=== PATIENT | female | born 1985 | race Asian ===

== ENCOUNTER 2020-04-20 06:34 | Day surgery (SDC) | payer OTHER ==
[2020-04-20 06:59] LABS: Specific Gravity 1.015 (1.005-1.030)
[2020-04-20] MEDS ORDERED: Ringers Lactate 1,000 ML IV ONE (07:05)
[2020-04-20] MEDS ORDERED: LIDOCAINE 2% MPF 5 ML VIAL ONE (07:36)
[2020-04-20] MEDS ORDERED: propofoL 200 MG/20 ML VIAL IV ONE (07:36)
[2020-04-20] MEDS ORDERED: MIDAZOLAM HCL 2 MG/2 ML INJ ONE (07:36)
[2020-04-20] MEDS ORDERED: FENTANYL CITR 100 MCG/2 ML ONE (07:36)
[2020-04-20] MEDS ORDERED: ONDANSETRON 4 MG/2 ML VIAL ONE (07:37)
[2020-04-20] MEDS ORDERED: NA CHLORIDE 0.9% 1,000 ML ONE (07:38)
[2020-04-20] MEDS ORDERED: LIDOCAINE 1% W/EPI 1:100,000 MDV 20 ML VIAL ONE (07:38)
[2020-04-20] MEDS ORDERED: dexAMETHasone 10 MG/ML VIAL ONE (08:11)
[2020-04-20] MEDS ORDERED: KETOROLAC 30 MG/ML INJ ONE (08:22)
[2020-04-20 08:51] VITALS: BP 120/78; TEMP 97.5; O2SAT 100
[2020-04-20] MEDS ORDERED: IBUPROFEN 200 MG TAB PO ONE (09:10)
--- NOTE | 2020-04-20 14:53 | OP ---
Date of Procedure: 04/20/2020 Surgeon: Nikki Viera MD Preoperative Diagnosis: Irregular menstrual bleeding, possible endometrial polyp. Postoperative Diagnoses: Irregular bleeding, (abnormal uterine bleeding due to ovulatory dysfunction ) and polypoid endometrium. No intracavitary mass. Procedures Performed: Hysteroscopy, Dilatation and Curettage. Anesthesia: MAC plus paracervical block. Specimens: Endometrial curettings. Complications: No complications. Drains: No drains. Condition: Stable. Findings: Uterus is anteflexed. The entire uterine cavity was well visualized. Both tubal ostia we re well visualized. The anterior wall of fundal endometrium, proximal posterior wall endometrium com pletely unremarkable. Distal posterior wall and lateral wall endometrium was polypoid. All pictures were taken and a copy given to her . Indications: The patient is a 34-year-old with irregular bleeding. She was being evaluated for infe rtility. On transvaginal ultrasound, there was thickened endometrium, possible question of a polyp. On second opinion consultation with me, we discussed about the findings and the recommendations of ronnell kaufman with hysteroscopic evaluation of the endometrial cavity as well as the endometrium for samp ling if abnormality was found were discussed with the patient and polypectomy was discussed and she w as consented and brought to the OR. Description Of Procedure: She was taken back to the OR, placed in supine fashion on the operating ta ble. MAC was given, placed in a dorsal lithotomy position. The vulva, vagina prepped and draped in a sterile fashion. Speculum placed to expose the cervix. Anterior lip injected with 1% lidocaine mi xed with 1:100,000 epinephrine. A paracervical block was given as well. Using a [employer] diagnostic hysteroscope, 30 degree lens, direct hysteroscopy with dilation of the cervix was conducted and uter ine cavity was entered. The findings are as dictated above, polypoid posterior wall and lateral wall s in the distal part of the cavity. No masses. Scope removed. Both tubal ostia were unremarkable. Normal-appearing. No abnormalities in the contour of the uterus. Before removing the scope, the tip of the scope was used to scrape the polypoid endometrium from its base. Most of the irregularity was scraped off and easily was . The scope was then removed . #1 curette was used to gently retrieve the tissue in the cavity. Then, curettage was performed po steriorly, laterally, and down gently. All these were retrieved, turned out for permanent pathology. The instruments removed. Instruments, needle, and sponge counts were correct at the end of the juan f e. The patient tolerated the procedure well. She was recovered from anesthesia in the OR and taken to PACU in stable condition. EBL was minimal. She has a 1 week follow up with me and she can follow up with her infertility product consultant. JAVIER/MARGY Voice ID: [id number] Report ID: [id number]
== END 2020-04-20 09:20 | disposition home or self-care (01) ==
LOC: OR 06:34
PROVIDERS: ATTEND Obstetrics & Gynecology
PROC: 0UJD8ZZ Inspection of Uterus and Cervix, Via Natural or Artificial Opening Endoscopic (ICD-10-PCS; 2020-04-20)
PROC: 0UDB7ZX Extraction of Endometrium, Via Natural or Artificial Opening, Diagnostic (ICD-10-PCS; principal; 2020-04-20 07:30)
DX: N92.6 Irregular menstruation, unspecified (principal); N94.6 Dysmenorrhea, unspecified; N84.0 Polyp of corpus uteri; N76.1 Subacute and chronic vaginitis; Z11.59 Encounter for screening for other viral diseases; Z80.8 Family history of malignant neoplasm of other organs or systems; Z82.49 Family history of ischemic heart disease and other diseases of the circulatory system
CPT/HCPCS: 81025; 88305; 58558; U0002; J2704; J2250; J3010; J1100; J7120; J7030; J2405

== ENCOUNTER 2021-11-08 20:04 | Observation (INO) | payer BC, OTHER ==
--- OUTSIDE RECORDS SUMMARY | 2021-11-08 20:08 | XMS REPORT | Continuity of Care Document ---
:[address] [facility] t Address [address] [place] [address] Care Team Providers Name Role Phone DONAVON NATION Attending Clinician Unavailable Sony Downey Attending Clinician Unavailable DONAVON NATION Admitting Clinician Unavailable Payers Payer Name Policy Type Policy Number Effective Date Expiration Date S our BCBS OS [id number] 2021 00:00:00 POS/PPO/EPO AETNA [facility] [id number] 2020 00:00:00 ACCESS CIGNA [id number] 2019 00:00:00 HMO/POS/OPEN ACCESS Problems This patient has no known problems. Allergies, Adverse Reactions, Alerts Allergy Allergy Status Severity Reaction(s) Onset Inactive Treating Comm ents Source Name Type Date Date Clinician NO KNOWN Allergy Active [facility] ALLERGIE S Medications This patient has no known medications. Vital Signs Vital Name Observation Time Observation Value Comments Source HEIGHT 2021-10-29 14:55:00 152.4 cm WEIGHT 2021-10-29 14:55:00 70.308 kg HEIGHT 2021-10-01 14:36:00 152.4 cm WEIGHT 2021-10-01 14:36:00 68.493 kg HEIGHT 2021-08-06 15:02:00 152.4 cm WEIGHT 2021-08-06 15:02:00 66.225 kg HEIGHT 2021-07-09 14:29:00 152.4 cm WEIGHT 2021-07-09 14:29:00 65.409 kg WEIGHT 2020-05-01 00:00:00 62.143 kg Procedures This patient has no known procedures. Encounters Start End Encounter Admission Attending Care Care Encounter Source Date/Time Date/Time Type Type Clinicians Facility Department ID 2021-12-18 2021-12-18 Outpatient [facility] [id number] 00:00:00 00:00:00 [facility] 2021-11-05 2021-11-05 [facility] [id number] [facility] 00:00:00 00:00:00 2021-10-31 2021-11-02 Inpatient WILL NATION [facility] Obstetrics [id number] [facility] 09:53:00 12:41:00 [facility] 2021-10-29 2021-10-29 Outpatient [facility] [id number] 14:40:00 15:14:01 [facility] 2021-10-22 2021-10-22 Outpatient FLORECITA [facility] [id number] 00[facility] 00:00:00 [facility] 2021-10-17 2021-10-17 Outpatient [facility] [id number] 14:12:00 15:31:14 [facility] 2021-10-17 2021-10-17 Outpatient [facility] [id number] 14:11:41 15:23:20 [facility] 2021-10-15 2021-10-15 Outpatient [facility] [id number] 00:00:00 00:00:00 [facility] 2021-10-15 2021-10-15 Outpatient FLORECITA [facility] [id number] [facility] 00[facility] 00:00:00 [facility] 2021-10-01 2021-10-01 Outpatient KRYSTA FANG Obstetrics [id number] [facility] 15:52:00 17:06:00 [facility] 2021-10-012021-10-01 Outpatient [facility] [id number] 14:29:27 15:37:26 [facility] 2021-09-17 2021-09-17 [facility] [id number] [facility] 15:26:00 16:52:00 [facility] 2021-09-17 2021-09-17 Outpatient [facility] [id number] 14:17:36 15:02:50 [facility] 2021-09-17 2021-09-17 Outpatient [facility] [id number] 14:18:01 15:01:58 [facility] 2021-09-03 2021-09-03 Outpatient [facility] [id number] 14:48:40 15:58:49 [facility] 2021-08-06 2021-08-06 Outpatient [facility] [id number] 14:33:25 16:14:47 [facility] 2021-07-09 2021-07-09 Outpatient JEMELKA-WEA [facility] [id number] 00:00[facility]00 00:00:00 [facility] 2021-06-11 2021-06-11 Outpatient JEMELKA-WEA [facility] [id number] 00:00[facility]00 00:00:00 [facility] 2021-05-14 2021-05-14 Outpatient JEMELKA-WEA [facility] [id number] 00:00:00 00:00:00 [facility] 2021-05-10 2021-05-10 Outpatient [facility] [id number] 00[facility]00:00 00:00:00 [facility] 2021-04-16 2021-04-16 Outpatient [facility] [id number] 00:00:00 00:00:00 [facility] 2021-04-16 2021-04-16 Outpatient JEMELKA, [facility] [id number] 00:00:00 00:00:00 [facility] 2020-08-29 2020-08-29 Outpatient DONAVON [facility] [id number] 00:00:00 00:00:00 [facility] 2020-07-04 2020-07-04 Outpatient DONAVON [facility] [id number] 00:00:00 00:00:00 [facility] 2020-05-22 2020-05-22 Outpatient EL [facility] [id number] [facility] 00:00:00 00:00:00 2020-05-01 2020-05-01 Outpatient DONAVON [facility] [id number] 00:00:00 00:00:00 [facility] 2019-11-30 2019-11-30 Outpatient Shayan, SWOBGYN SWOB[facility]N [id number] [facility] 13:14:00 13:14:00 Shelbie leiva OBGYN 2019-11-30 2019-11-30 Outpatient Shayan, SWOBGYN SWOBGYN [id number] [facility] 10:45:00 10:45:00 Shelbie leiva OBGYN 2019-10-21 2019-10-21 Outpatient Shayan, KIRTIGYN SWOBGYN [id number] [facility] 14:18:00 14:18:00 Shelbie SegalN Results Test Description Test Time Test Comments Results Result Comments Source CBC W/PLT COUNT & AUTO DIFFERENTIAL 2021-11-02 04:59:39 Test Item Value Reference Range Interpretation Comme nts WHITE BLOOD CELL COUNT (BEAKER) (test code = 775) 17.0 K/ L 4.0- 10.0 H RED BLOOD CELL COUNT (BEAKER) (test code = 761) 4.38 M/ L 4.00-5 .00 HEMOGLOBIN (BEAKER) (test code = 410) 9.4 GM/DL 12.0-15.5 L HEMATOCRIT (BEAKER) (test code = 411) 28.8 % 36.0-46.0 L MEAN CORPUSCULAR VOLUME (BEAKER) (test code = 753) 65.8 fL 82. 0-99.0 L MEAN CORPUSCULAR HEMOGLOBIN (BEAKER) (test code = 751) 21.5 pg 27.0-33.0 L MEAN CORPUSCULAR HEMOGLOBIN CONC (BEAKER) (test code = 752) 32.6 GM/DL 32.0-36.0 RED CELL DISTRIBUTION WIDTH (BEAKER) (test code = 412) 15.4 % 12.0-15.0 H PLATELET COUNT (BEAKER) (test code = 756) 274 K/CU MM 150-430 MEAN PLATELET VOLUME (BEAKER) (test code = 754) 12.1 fL 6.0-11 .5 H NUCLEATED RED BLOOD CELLS (BEAKER) (test code = 413) 0 /100 WBC 0 -0 NEUTROPHILS RELATIVE PERCENT (BEAKER) (test code = 429) 74 % LYMPHOCYTES RELATIVE PERCENT (BEAKER) (test code = 430) 17 % MONOCYTES RELATIVE PERCENT (BEAKER) (test code = 431) 7 % EOSINOPHILS RELATIVE PERCENT (BEAKER) (test code = 432) 1 % BASOPHILS RELATIVE PERCENT (BEAKER) (test code = 437) 1 % NEUTROPHILS ABSOLUTE COUNT (BEAKER) (test code = 670) 12.52 K/ L 1.80-8.00 H LYMPHOCYTES ABSOLUTE COUNT (BEAKER) (test code = 414) 2.85 K/ L 1.48-4.50 MONOCYTES ABSOLUTE COUNT (BEAKER) (test code = 415) 1.14 K/ L 0. 00-1.30 EOSINOPHILS ABSOLUTE COUNT (BEAKER) (test code = 416) 0.18 K/ L 0.00-0.50 BASOPHILS ABSOLUTE COUNT (BEAKER) (test code = 417) 0.08 K/ L 0. 00-0.20 IMMATURE GRANULOCYTES-RELATIVE PERCENT (BEAKER) (test code 1 % 0-0 H = 2801) [id number] 08:49:23 Test Item Value Reference Range Interpretation Comments RPR SCREEN (BEAKER) (test code = Nonreactive Nonreactive 420) BLOOD GAS, CORD [id number] 18:12:13 Test Item Value Reference Range Interpretation Comments PH CORD VENOUS (BEAKER) (test 7.30 7.32-7.42 L code = 2866) PCO2 CORD VENOUS (BEAKER) (test 48 mm Hg 41-51 code = 2867) PO2 CORD VENOUS (BEAKER) (test 18 mm Hg 25-40 L code = 2868) HCO3 CORD VENOUS (BEAKER) (test 23 mmol/L 21-29 code = 2869) BASE EXCESS CORD VENOUS (BEAKER) -3.9 mmol/L -2.0-3.0 L (test code = 2870) PATIENT TEMPERATURE (BEAKER) 37.0 (test code = 1818) BLOOD GAS, CORD [id number] 18:07:46 Test Item Value Reference Range Interpretation Comments PH CORD ARTERIAL (BEAKER) (test 7.25 7.15-7.38 code = 2861) PCO2 CORD ARTERIAL (BEAKER) (test 56 mm Hg 32-68 code = 2862) PO2 CORD ARTERIAL (BEAKER) (test 16 mm Hg 16-20 code = 2863) HCO3 CORD ARTERIAL (BEAKER) (test 24 mmol/L 15-27 code = 2864) BASE EXCESS CORD ARTERIAL -4.4 mmol/L -8.1-0.9 (BEAKER) (test code = 2865) PATIENT TEMPERATURE (BEAKER) 37.0 (test code = 1818) HEPATITIS B SURFACE [id number] 12:56:52 Test Item Value Reference Range Interpretation Comments HEPATITIS B SURFACE ANTIGEN (2) Nonreactive Nonreactive (BEAKER) (test code = 2585) Tool Pusher ID - [id number] METABOLIC [id number] 12:39:28 Test Item Value Reference Range Interpretation Comments TOTAL PROTEIN 6.6 gm/dL 6.0-8.5 (BEAKER) (test code = 770) ALBUMIN (BEAKER) 3.5 g/dL 3.5-5.0 (test code = 1145) ALKALINE PHOSPHATASE 105 U/L 30-115 (BEAKER) (test code = 346) BILIRUBIN TOTAL 0.9 mg/dL 0.1-1.2 (BEAKER) (test code = 377) SODIUM (BEAKER) (test 136 meq/L 135-148 code = 381) POTASSIUM (BEAKER) 3.9 meq/L 3.6-5.5 (test code = 379) CHLORIDE (BEAKER) 103 meq/L 98-106 (test code = 382) CO2 (BEAKER) (test 21 meq/L 20-29 code = 355) BLOOD UREA NITROGEN 6 mg/dL 10-26 L (BEAKER) (test code = 354) CREATININE (BEAKER) 0.61 mg/dL 0.50-1.20 (test code = 358) GLUCOSE RANDOM 85 mg/dL 70-110 (BEAKER) (test code = 652) CALCIUM (BEAKER) 9.1 mg/dL 8.5-10.5 (test code = 697) AST (SGOT) (BEAKER) 15 U/L 5-40 (test code = 353) ALT (SGPT) (BEAKER) 13 U/L 5-50 (test code = 347) EGFR (BEAKER) (test 112 ESTIMATE D GFR IS code = 1092) mL/min/1.73 sq NOT ACCURA TE m CREATININE CLEARANCE IN PREDICTING GLOMERULAR FILTRATION RATE . ESTIMATED GFR I S NOT APPLICABLE FOR DIALYSIS PATIEN TS. Tool Pusher ID - [id number] ID - [id number] ID - [id number] ID - [id number] ID - [id number] ID - [id number] ID - [id number] ID - [id number] ID - [id number] ID - [id number] ID - [id number] ID - [id number] ID - [id number] ID - [id number] ID - [id number] ID - [id number] 12:38:26 Test Item Value Reference Range Interpretation Comments URIC ACID (BEAKER) (test code = 6.4 mg/dL 2.5-8.0 773) Tool Pusher ID - [id number] ID - [id number] ID - [id number] ID - [id number] W/PLT COUNT & AUTO [id number] 12:26:42 Test Item Value Reference Range Interpretation Comments WHITE BLOOD CELL COUNT (BEAKER) 14.6 K/ L 4.0-10.0 H (test code = 775) RED BLOOD CELL COUNT (BEAKER) 5.37 M/ L 4.00-5.00 H (test code = 761) HEMOGLOBIN (BEAKER) (test code = 11.4 GM/DL 12.0-15.5 L 410) HEMATOCRIT (BEAKER) (test code = 35.3 % 36.0-46.0 L 411) MEAN CORPUSCULAR VOLUME (BEAKER) 65.7 fL 82.0-99.0 L (test code = 753) MEAN CORPUSCULAR HEMOGLOBIN 21.2 pg 27.0-33.0 L (BEAKER) (test code = 751) MEAN CORPUSCULAR HEMOGLOBIN CONC 32.3 GM/DL 32.0-36.0 (BEAKER) (test code = 752) RED CELL DISTRIBUTION WIDTH 15.9 % 12.0-15.0 H (BEAKER) (test code = 412) PLATELET COUNT (BEAKER) (test 310 K/CU MM 150-430 code = 756) MEAN PLATELET VOLUME (BEAKER) 10.5 fL 6.0-11.5 (test code = 754) NUCLEATED RED BLOOD CELLS 0 /100 WBC 0-0 (BEAKER) (test code = 413) NEUTROPHILS RELATIVE PERCENT 80 % (BEAKER) (test code = 429) LYMPHOCYTES RELATIVE PERCENT 11 % (BEAKER) (test code = 430) MONOCYTES RELATIVE PERCENT 6 % (BEAKER) (test code = 431) EOSINOPHILS RELATIVE PERCENT 1 % (BEAKER) (test code = 432) BASOPHILS RELATIVE PERCENT 0 % (BEAKER) (test code = 437) NEUTROPHILS ABSOLUTE COUNT 11.59 K/ L 1.80-8.00 H (BEAKER) (test code = 670) LYMPHOCYTES ABSOLUTE COUNT 1.65 K/ L 1.48-4.50 (BEAKER) (test code = 414) MONOCYTES ABSOLUTE COUNT (BEAKER) 0.92 K/ L 0.00-1.30 (test code = 415) EOSINOPHILS ABSOLUTE COUNT 0.11 K/ L 0.00-0.50 (BEAKER) (test code = 416) BASOPHILS ABSOLUTE COUNT (BEAKER) 0.04 K/ L 0.00-0.20 (test code = 417) IMMATURE GRANULOCYTES-RELATIVE 2 % 0-0 H PERCENT (BEAKER) (test code = 2801) ROM (RUPTURE OF MEMBRANE)2021-10-31 10:33:59 Test Item Value Reference Range Interpretation Comments RUPTURE OF MEMBRANES (test Positive code = 1524) RFM - TYPE OF TEST (test code = Rom Plus 5987) CREATININE, RANDOM [id number] 16:48:51 Test Item Value Reference Range Interpretation Comments CREATININE URINE (BEAKER) (test 32.2 mg/dL code = 375) Reference Range: No NormalsOperator ID - [id number], RANDOM [id number] 16:45:25 Test Item Value Reference Range Interpretation Comments PROTEIN, URINE (BEAKER) (test code = 2 mg/dL 0-14 1569) Tool Pusher ID - [id number] METABOLIC [id number] 16:37:27 Test Item Value Reference Range Interpretation Comments TOTAL PROTEIN 6.5 gm/dL 6.0-8.5 (BEAKER) (test code = 770) ALBUMIN (BEAKER) 3.5 g/dL 3.5-5.0 (test code = 1145) ALKALINE PHOSPHATASE 84 U/L 30-115 (BEAKER) (test code = 346) BILIRUBIN TOTAL 0.6 mg/dL 0.1-1.2 (BEAKER) (test code = 377) SODIUM (BEAKER) (test 135 meq/L 135-148 code = 381) POTASSIUM (BEAKER) 4.0 meq/L 3.6-5.5 (test code = 379) CHLORIDE (BEAKER) 104 meq/L 98-106 (test code = 382) CO2 (BEAKER) (test 22 meq/L 20-29 code = 355) BLOOD UREA NITROGEN 7 mg/dL 10-26 L (BEAKER) (test code = 354) CREATININE (BEAKER) 0.61 mg/dL 0.50-1.20 (test code = 358) GLUCOSE RANDOM 92 mg/dL 70-110 (BEAKER) (test code = 652) CALCIUM (BEAKER) 9.3 mg/dL 8.5-10.5 (test code = 697) AST (SGOT) (BEAKER) 16 U/L 5-40 (test code = 353) ALT (SGPT) (BEAKER) 15 U/L 5-50 (test code = 347) EGFR (BEAKER) (test 112 ESTIMATE D GFR IS code = 1092) mL/min/1.73 sq NOT ACCURA TE m CREATININE CLEARANCE IN PREDICTING GLOMERULAR FILTRATION RATE . ESTIMATED GFR I S NOT APPLICABLE FOR DIALYSIS PATIEN TS. Tool Pusher ID - [id number] ID - [id number] ID - [id number] ID - [id number] ID - [id number] ID - [id number] ID - [id number] ID - [id number] ID - [id number] ID - [id number] ID - [id number] ID - [id number] ID - [id number] ID - [id number] ID - [id number] ID - [id number] ID - [id number] ID - [id number] ID - [id number] URINALYSIS WITH MICROSCOPIC IF [id number] 16:21:08 Test Item Value Reference Range Interpretation Comments COLOR (BEAKER) (test code = 470) Yellow CLARITY (BEAKER) (test code = 469) Clear SPECIFIC GRAVITY UA (BEAKER) (test 1.010 1.001-1.035 code = 468) PH UA (BEAKER) (test code = 467) 6.5 5.0-8.0 PROTEIN UA (BEAKER) (test code = Negative Negative 464) GLUCOSE UA (BEAKER) (test code = Negative Negative 365) KETONES UA (BEAKER) (test code = Negative Negative 371) BILIRUBIN UA (BEAKER) (test code = Negative Negative 462) BLOOD UA (BEAKER) (test code = 461) Negative Negative NITRITE UA (BEAKER) (test code = Negative Negative 465) LEUKOCYTE ESTERASE UA (BEAKER) Negative Negative (test code = 466) UROBILINOGEN UA (BEAKER) (test code 0.2 mg/dL 0.2-1.0 = 463) SOURCE(BEAKER) (test code = 2795) CBC W/PLT COUNT & AUTO [id number] 16:20:50 Test Item Value Reference Range Interpretation Comments WHITE BLOOD CELL COUNT (BEAKER) 14.6 K/ L 4.0-10.0 H (test code = 775) RED BLOOD CELL COUNT (BEAKER) 4.91 M/ L 4.00-5.00 (test code = 761) HEMOGLOBIN (BEAKER) (test code = 10.6 GM/DL 12.0-15.5 L 410) HEMATOCRIT (BEAKER) (test code = 32.3 % 36.0-46.0 L 411) MEAN CORPUSCULAR VOLUME (BEAKER) 65.8 fL 82.0-99.0 L (test code = 753) MEAN CORPUSCULAR HEMOGLOBIN 21.6 pg 27.0-33.0 L (BEAKER) (test code = 751) MEAN CORPUSCULAR HEMOGLOBIN CONC 32.8 GM/DL 32.0-36.0 (BEAKER) (test code = 752) RED CELL DISTRIBUTION WIDTH 15.8 % 12.0-15.0 H (BEAKER) (test code = 412) PLATELET COUNT (BEAKER) (test 265 K/CU MM 150-430 code = 756) MEAN PLATELET VOLUME (BEAKER) 12.4 fL 6.0-11.5 H (test code = 754) NUCLEATED RED BLOOD CELLS 0 /100 WBC 0-0 (BEAKER) (test code = 413) NEUTROPHILS RELATIVE PERCENT 77 % (BEAKER) (test code = 429) LYMPHOCYTES RELATIVE PERCENT 12 % (BEAKER) (test code = 430) MONOCYTES RELATIVE PERCENT 7 % (BEAKER) (test code = 431) EOSINOPHILS RELATIVE PERCENT 1 % (BEAKER) (test code = 432) BASOPHILS RELATIVE PERCENT 0 % (BEAKER) (test code = 437) NEUTROPHILS ABSOLUTE COUNT 11.22 K/ L 1.80-8.00 H (BEAKER) (test code = 670) LYMPHOCYTES ABSOLUTE COUNT 1.78 K/ L 1.48-4.50 (BEAKER) (test code = 414) MONOCYTES ABSOLUTE COUNT (BEAKER) 1.05 K/ L 0.00-1.30 (test code = 415) EOSINOPHILS ABSOLUTE COUNT 0.10 K/ L 0.00-0.50 (BEAKER) (test code = 416) BASOPHILS ABSOLUTE COUNT (BEAKER) 0.05 K/ L 0.00-0.20 (test code = 417) IMMATURE GRANULOCYTES-RELATIVE 3 % 0-0 H PERCENT (BEAKER) (test code = 2801) CBC W/PLT COUNT & AUTO [id number] 16:43:50 Test Item Value Reference Range Interpretation Comments WHITE BLOOD CELL COUNT (BEAKER) 13.1 K/ L 4.0-10.0 H (test code = 775) RED BLOOD CELL COUNT (BEAKER) 4.83 M/ L 4.00-5.00 (test code = 761) HEMOGLOBIN (BEAKER) (test code = 10.1 GM/DL 12.0-15.5 L 410) HEMATOCRIT (BEAKER) (test code = 31.3 % 36.0-46.0 L 411) MEAN CORPUSCULAR VOLUME (BEAKER) 64.8 fL 82.0-99.0 L (test code = 753) MEAN CORPUSCULAR HEMOGLOBIN 20.9 pg 27.0-33.0 L (BEAKER) (test code = 751) MEAN CORPUSCULAR HEMOGLOBIN CONC 32.3 GM/DL 32.0-36.0 (BEAKER) (test code = 752) RED CELL DISTRIBUTION WIDTH 15.4 % 12.0-15.0 H (BEAKER) (test code = 412) PLATELET COUNT (BEAKER) (test 265 K/CU MM 150-430 code = 756) MEAN PLATELET VOLUME (BEAKER) 10.7 fL 6.0-11.5 (test code = 754) NUCLEATED RED BLOOD CELLS 0 /100 WBC 0-0 (BEAKER) (test code = 413) NEUTROPHILS RELATIVE PERCENT 76 % (BEAKER) (test code = 429) LYMPHOCYTES RELATIVE PERCENT 13 % (BEAKER) (test code = 430) MONOCYTES RELATIVE PERCENT 7 % (BEAKER) (test code = 431) EOSINOPHILS RELATIVE PERCENT 1 % (BEAKER) (test code = 432) BASOPHILS RELATIVE PERCENT 1 % (BEAKER) (test code = 437) NEUTROPHILS ABSOLUTE COUNT 10.00 K/ L 1.80-8.00 H (BEAKER) (test code = 670) LYMPHOCYTES ABSOLUTE COUNT 1.73 K/ L 1.48-4.50 (BEAKER) (test code = 414) MONOCYTES ABSOLUTE COUNT (BEAKER) 0.92 K/ L 0.00-1.30 (test code = 415) EOSINOPHILS ABSOLUTE COUNT 0.07 K/ L 0.00-0.50 (BEAKER) (test code = 416) BASOPHILS ABSOLUTE COUNT (BEAKER) 0.06 K/ L 0.00-0.20 (test code = 417) IMMATURE GRANULOCYTES-RELATIVE 3 % 0-0 H PERCENT (BEAKER) (test code = 2801) (MANUAL DIFFERENTIAL)[id number] 16:43:50 Test Item Value Reference Range Interpretation Comments TOTAL COUNTED (BEAKER) (test code = 1351) WBC MORPHOLOGY (BEAKER) (test code = Normal 487) LARGE PLT(BEAKER) (test code = 2156) Present CLUMPED PLATELETS (BEAKER) (test code Present = 436) ANISOCYTOSIS (BEAKER) (test code = 1+ few 961) POIKILOCYTES (BEAKER) (test code = 1+ few 966) POLYCHROMATOPHILLIC RBCS(BEAKER) 1+ few (test code = 478) TEAR DROP CELLS (BEAKER) (test code = 1+ few 481) COMPREHENSIVE METABOLIC [id number] 16:22:29 Test Item Value Reference Range Interpretation Comments TOTAL PROTEIN 6.5 gm/dL 6.0-8.5 (BEAKER) (test code = 770) ALBUMIN (BEAKER) 3.6 g/dL 3.5-5.0 (test code = 1145) ALKALINE PHOSPHATASE 72 U/L 30-115 (BEAKER) (test code = 346) BILIRUBIN TOTAL 0.8 mg/dL 0.1-1.2 (BEAKER) (test code = 377) SODIUM (BEAKER) (test 136 meq/L 135-148 code = 381) POTASSIUM (BEAKER) 3.6 meq/L 3.6-5.5 (test code = 379) CHLORIDE (BEAKER) 104 meq/L 98-106 (test code = 382) CO2 (BEAKER) (test 21 meq/L 20-29 code = 355) BLOOD UREA NITROGEN 5 mg/dL 10-26 L (BEAKER) (test code = 354) CREATININE (BEAKER) 0.57 mg/dL 0.50-1.20 (test code = 358) GLUCOSE RANDOM 84 mg/dL 70-110 (BEAKER) (test code = 652) CALCIUM (BEAKER) 8.9 mg/dL 8.5-10.5 (test code = 697) AST (SGOT) (BEAKER) 18 U/L 5-40 (test code = 353) ALT (SGPT) (BEAKER) 14 U/L 5-50 (test code = 347) EGFR (BEAKER) (test 121 ESTIMATE D GFR IS code = 1092) mL/min/1.73 sq NOT ACCURA TE m CREATININE CLEARANCE IN PREDICTING GLOMERULAR FILTRATION RATE . ESTIMATED GFR I S NOT APPLICABLE FOR DIALYSIS PATIEN TS. Tool Pusher ID - [id number] ID - [id number] ID - [id number] ID - [id number] ID - [id number] ID - [id number] ID - CAACN454Delrzomm ID - [id number] ID - [id number] ID - [id number] ID - [id number] ID - [id number] ID - [id number] ID - [id number] ID - [id number] ID - [id number] 16:19:52 Test Item Value Reference Range Interpretation Comments URIC ACID (BEAKER) (test code = 5.5 mg/dL 2.5-8.0 773) Tool Pusher ID - [id number] ID - [id number] ID - [id number] ID - [id number] W/ [id number] 16:09:00 Test Item Value Reference Range Interpretation Comments COLOR (BEAKER) (test code = 470) Yellow CLARITY (BEAKER) (test code = 469) Clear SPECIFIC GRAVITY UA (BEAKER) (test 1.010 1.001-1.035 code = 468) PH UA (BEAKER) (test code = 467) 6.5 5.0-8.0 PROTEIN UA (BEAKER) (test code = Negative Negative 464) GLUCOSE UA (BEAKER) (test code = Negative Negative 365) KETONES UA (BEAKER) (test code = Negative Negative 371) BILIRUBIN UA (BEAKER) (test code = Negative Negative 462) BLOOD UA (BEAKER) (test code = 461) Negative Negative NITRITE UA (BEAKER) (test code = Negative Negative 465) LEUKOCYTE ESTERASE UA (BEAKER) Negative Negative (test code = 466) UROBILINOGEN UA (BEAKER) (test code 0.2 mg/dL 0.2-1.0 = 463) BACTERIA (BEAKER) (test code = 517) None Seen RBC UA-MANUAL (BEAKER) (test code = <5 /HPF 1659) WBC UA-MANUAL (BEAKER) (test code = <5 /HPF 1661) SQUAMOUS EPITHELIAL MANUAL (BEAKER) <5 /HPF (test code = 1663) SOURCE(BEAKER) (test code = 2795) FL, HYSTEROSALPINGOGRAM (RAD)2020-05-22 10:26:00Reason for Exam:->FERTILITY TESTINGFINAL REPORT PROCEDURE: Hysterosalpingogram CLINICAL HISTORY: FERTILITY TESTING COMPARISON: None. PATIENT EXPERIENCE COORDINATOR: Albert Sanchez DO, JD ESTIMATED BLOOD LOSS: None. SAMPLE: None. ANESTHESIA: None. DOSE INFORMATION - Ka,r: 26 mGy PROCEDURE: After the patient was placed supine in a lithotomy position, a speculum was inserted into the vagina exposing the cervical os. The cervix was cleansed with povidone and a 5 Fr HSG catheter was advanced through the cervical os. Following watersoluble contrast infusion under fluoroscopic observation multiple images were obtained. The uterine cavity is normal in size and shape without congenital anomaly or mass effect. The bilateral fallopian tubes demonstrate free intraperitoneal spill. The patient tolerated the procedure well.A female technologist/nurse was present during the entire procedure. IMPRESSION: Normal hysterosalpingogram. Signed: Albert Sanchez MDReport Verified Date/Time: 05/22/2020 10:26:39 Reading Location: [facility] RadiologyReading Room
[2021-11-08 20:55] LABS: Urine Blood 3+ (Negative); Urine Glucose Negative (Negative); Urine Protein Negative (Negative)
[2021-11-08 20:58] LABS: Protime INR 0.93
[2021-11-08 20:59] LABS: Absolute Lymphocytes (CBC) 1.6 K/uL (0.7-4.9); Hematocrit 33.8 % (36.0-45.0); Lymphocytes % 14.6 % (15.3-44.8); MPV 7.5 fL (7.6-11.3); RBC Red Blood Cell Count 5.21 M/uL (3.86-4.86)
[2021-11-08 21:16] LABS: Basophilic Stippling 1+; Blood Morphology Comment NOTED (NOT SEEN); Hypochromasia 1+; Platelet Estimate INCR; Polychromasia SLIGHT; White Blood Cell Scan OK (OK)
[2021-11-08 21:18] LABS: ALT/SGPT 25 U/L (12-78); AST/SGOT 12 U/L (15-37); Albumin 3.1 g/dL (3.4-5.0); Alkaline Phosphatase 83 U/L (45-117); BUN Blood Urea Nitrogen 10 mg/dL (7-18); Bicarbonate 27 mmol/L (21-32); Bilirubin Direct 0.1 mg/dL (0-0.2); Bilirubin Total 0.5 mg/dL (0.2-1.0); Glucose Level 106 mg/dL (74-106); Magnesium 2.1 mg/dL (1.8-2.4); NT PRO-BNP 102 pg/mL (<125); Potassium 3.6 mmol/L (3.5-5.1); Protein, Total 7.3 g/dL (6.4-8.2); Sodium Level 140 mmol/L (136-145)
--- NOTE | 2021-11-08 22:01 | RAD REPORT ---
EXAM DESCRIPTION: RAD - Chest Single View - 11/08/2021 9:35 pm CLINICAL HISTORY: Hypertension Chest pain. COMPARISON: Chest Pa And Lat (2 Views) dated 12/09/2018 FINDINGS: Portable technique limits examination quality. The lungs are grossly clear. The heart is normal in size. No displaced fractures. IMPRESSION: No acute intrathoracic process suspected.
[2021-11-08] MEDS ORDERED: CEPHALEXIN 250 MG CAP ONE (22:08)
[2021-11-08] MEDS ORDERED: HYDRALAZINE HCL 20 MG/ML VIAL ONE (22:46)
--- NOTE | 2021-11-08 22:58 | EDPHYS ---
Physician Documentation [facility] Name: Leydi Cleaning Age: 36 yrs Sex: Female : 1985 Arrival Date: 11/08/2021 Time: 20:08 Bed 25 Private MD: ED Physician Martín Nino HPI: 11/08 20:40 This 36 yrs old Female presents to ER via Ambulatory with complaints of High mh7 Blood Pressure - 117/100. 20:40 The patient has elevated blood pressure and discovered this at home, with a home device.mh7 20:40 Onset: The symptoms/episode began/occurred today. Modifying factors: The symptoms are mh7 aggravated by Anxiety, The symptoms are alleviated by Nothing that. Associated signs and symptoms: Pertinent negatives: chest pain, dizziness, dyspnea, headache, lightheadedness, nausea, visual changes, vomiting, weakness. Severity of symptoms: At its worst the blood pressure was 170 mm Hg, in the emergency department the blood pressure is unchanged, despite home interventions. The patient has experienced similar episodes in the past, multiple times. Patient states that she gave 1 week ago and had elevated blood pressure during and was being monitored for preeclampsia follow-up test were negative. She states that she checked her blood pressure at home today and had a systolic reading of 170. She called her OB doctor who called in a prescription for Procardia 30 mg daily. She states that she took the medication around 7 PM but has not noticed improvement of her blood pressure. She denies any symptoms including headache, neck pain, chest pain, abdominal pain, back pain, shortness of breath, nausea, vomiting, dizziness,, numbness/tingling, or weakness. She states that she has noticed her blood pressure gets elevated when she gets anxious although she has not had a prior diagnosis of anxiety.. 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 - Social history:: Smoking status: Patient denies any tobacco usage or history of. ROS: 20:40 Constitutional: Negative for fever, chills, and weight loss, Eyes: Negative for injury, mh7 pain, redness, and discharge, ENT: Negative for injury, pain, and discharge, Neck: Negative for injury, pain, and swelling, Cardiovascular: Negative for chest pain, palpitations, and edema, Respiratory: Negative for shortness of breath, cough, wheezing, and pleuritic chest pain, Abdomen/GI: Negative for abdominal pain, nausea, vomiting, diarrhea, and constipation, Back: Negative for injury and pain, : Negative for injury, bleeding, discharge, and swelling, MS/Extremity: Negative for injury and deformity, Skin: Negative for injury, rash, and discoloration, Neuro: Negative for headache, weakness, numbness, tingling, and seizure, Psych: Negative for depression, anxiety, suicide ideation, homicidal ideation, and hallucinations, Allergy/Immunology: Negative for hives, rash, and allergies, Endocrine: Negative for neck swelling, polydipsia, polyuria, polyphagia, and marked weight changes, Hematologic/Lymphatic: Negative for swollen nodes, abnormal bleeding, and unusual bruising. Exam: 20:40 Head/Face: Normocephalic, atraumatic. Eyes: Pupils equal round and reactive to light, mh7 extra-ocular motions intact. Lids and lashes normal. Conjunctiva and sclera are non-icteric and not injected. Cornea within normal limits. Periorbital areas with no swelling, redness, or edema. ENT: Nares patent. No nasal discharge, no septal abnormalities noted. Tympanic membranes are normal and external auditory canals are clear. Oropharynx with no redness, swelling, or masses, exudates, or evidence of obstruction, uvula midline. Mucous membranes moist. Neck: Trachea midline, no thyromegaly or masses palpated, and no cervical lymphadenopathy. Supple, full range of motion without nuchal rigidity, or vertebral point tenderness. No Meningismus. Chest/axilla: Normal chest wall appearance and motion. Nontender with no deformity. No lesions are appreciated. Cardiovascular: Regular rate and rhythm with a normal S1 and S2. No gallops, murmurs, or rubs. Normal PMI, no JVD. No pulse deficits. Respiratory: Lungs have equal breath sounds bilaterally, clear to auscultation and percussion. No rales, rhonchi or wheezes noted. No increased work of breathing, no retractions or nasal flaring. Abdomen/GI: Soft, non-tender, with normal bowel sounds. No distension or tympany. No guarding or rebound. No evidence of tenderness throughout. Back: No spinal tenderness. No costovertebral tenderness. Full range of motion. Skin: Warm, dry with normal turgor. Normal color with no rashes, no lesions, and no evidence of cellulitis. MS/ Extremity: Pulses equal, no cyanosis. Neurovascular intact. Full, normal range of motion. Neuro: Awake and alert, GCS 15, oriented to person, place, time, and situation. Cranial nerves II-XII grossly intact. Motor strength 5/5 in all extremities. Sensory grossly intact. Cerebellar exam normal. Normal gait. Psych: Awake, alert, with orientation to person, place and time. Behavior, mood, and affect are within normal limits. 20:40 Constitutional: The patient appears in no acute distress, alert, awake, anxious. Vital Signs: 20:13 BP 186 / 104; Pulse 92; Resp 18 S; Temp 99.3(O); Pulse Ox 100% on R/A; Weight 65.77 kg as6 (R); Height 5 ft. 3 in. (160.02 cm) (R); Pain 4/10; 20:30 BP 165 / 100; Pulse 89; Resp 14; Pulse Ox 100% on R/A; Pain 0/10; st1 21:09 BP 152 / 100; Pulse 72; Resp 16; Pulse Ox 100% on 1 lpm NC; Pain 0/10; st1 22:05 BP 171 / 103; Pulse 75; Resp 18; Pulse Ox 99% ; st1 22:47 BP 178 / 113; Pulse 91; Resp 14; Pulse Ox 100% on R/A; st1 23:49 BP 145 / 95; Pulse 75; Resp 16; Pulse Ox 100% on R/A; st1 20:13 Body Mass Index 25.69 (65.77 kg, 160.02 cm) as6 [place] Coma Score: 20:30 Eye Response: spontaneous(4). Verbal Response: oriented(5). Motor Response: obeys st1 commands(6). Total: 15. MDM: 22:05 Differential diagnosis: hypertensive crisis, Malignant HTN, Hypertension, anxiety. Data [facility] reviewed: vital signs, nurses notes, lab test result(s), cardiac enzymes, CBC, electrolytes, urinalysis, EKG, radiologic studies, plain films. Data interpreted: Pulse oximetry: on room air is 100 %. Interpretation: normal. 22:55 Counseling: I had a detailed discussion with the patient and/or guardian regarding: the [facility] historical points, exam findings, and any diagnostic results supporting the discharge/admit diagnosis, the presence of at least one elevated blood pressure reading (>120/80) during this emergency department visit, lab results, radiology results, the need for further work-up and treatment in the hospital. Response to treatment: the patient's symptoms have mildly improved after treatment. 22:58 Patient medically screened. [facility] 11/08 20:37 Order name: Basic Metabolic Panel [facility] 11/08 20:37 Order name: CBC with Diff [facility] 11/08 20:37 Order name: LFT's [facility] 11/08 20:37 Order name: Magnesium [facility] 11/08 20:37 Order name: NT PRO-BNP; Complete Time: 21:26 [facility] 11/08 20:37 Order name: PT-INR; Complete Time: 21:26 [facility] 11/08 20:37 Order name: Troponin HS; Complete Time: : [facility] 11/08 20:38 Order name: Basic Metabolic Panel; Complete Time: 21:26 [facility] 11/08 20:38 Order name: CBC with Automated Diff; Complete Time: 21: [facility] 11/08 20:38 Order name: Liver (Hepatic) Function; Complete Time: 21: [facility] 11/08 20:38 Order name: Magnesium; Complete Time: : [facility] 11/08 20:56 Order name: Urine Dipstick-Ancillary; Complete Time: : [facility] 11/08 21:16 Order name: CBC Smear Scan; Complete Time: : [facility] 11/08 21:26 Order name: Urine Culture [facility] 11/08 20:37 Order name: XRAY Chest (1 view); Complete Time: 22:05 [facility] 11/08 20:37 Order name: EKG; Complete Time: 20:38 [facility] 11/08 20:37 Order name: Cardiac monitoring; Complete Time: 20:39 [facility] 11/08 20:37 Order name: EKG - Nurse/Tech; Complete Time: 20:52 [facility] 11/08 20:37 Order name: IV Saline Lock; Complete Time: 20:51 [facility] 11/08 20:37 Order name: Labs collected and sent; Complete Time: 20:51 [facility] 11/08 20:37 Order name: O2 Per Protocol; Complete Time: 20:40 [facility] 11/08 21:27 Order name: Urine Culture [facility] 11/08 22:51 Order name: COVID-19 SARS RT PCR (Document "Date of Onset" if Symptomatic); Complete mw2 Time: 23:48 11/08 22:55 Order name: COVID-19 (Coronavirus) Document "Date of Onset" if Symptomatic [facility] 11/08 22:56 Order name: CORONAVIRUS [facility] 11/08 23:15 Order name: Heart Healthy [facility] 11/08 23:15 Order name: Magnesium [facility] 11/08 20:37 Order name: O2 Sat Monitoring; Complete Time: 20:40 [facility] 11/08 20:38 Order name: Urine Dipstick-Ancillary (obtain specimen); Complete Time: 20:52 [facility] 11/08 23:15 Order name: Mccord; Complete Time: 23:53 [facility] Administered Medications: 22:09 Drug: KeFLEX (cephalexin) 500 mg Route: PO; st1 22:47 Drug: hydrALAZINE 5 mg Route: IVP; Site: right antecubital; st1 23:56 Not Given (Patient Refused): Magnesium Sulfate 4 grams IVPB once over 2 hrs st1 Disposition Summary: 11/08/21 22:58 Hospitalization Ordered Hospitalization Status: Inpatient Admission [facility] Provider: Raoul Zhao [facility] Condition: Stable [facility] Problem: an ongoing problem [facility] Symptoms: have improved [facility] Bed/Room Type: Standard [facility] Room Assignment: [facility]-(11/08/21 23:23) Diagnosis - -induced hypertension, [facility] Forms: - Medication Reconciliation Form [facility] - SBAR form [facility] Signatures: Dispatcher [employer] Madhavi Edmondson RN RN cg Holmes, Maurice, MD MD 7 Hong Watsno RN RN as6 Riana Sheikh RN RN st1 Corrections: (The following items were deleted from the chart) 22:56 22:05 Counseling: I had a detailed discussion with the patient and/or guardian [facility] regarding: the historical points, exam findings, and any diagnostic results supporting the discharge/admit diagnosis, the presence of at least one elevated blood pressure reading (>120/80) during this emergency department visit, lab results, radiology results, the need for outpatient follow up, to return to the emergency department if symptoms worsen or persist or if there are any questions or concerns that arise at home, [facility] :56 22:05 Response to treatment: the patient's symptoms have markedly improved after 7 treatment, patient is well hydrated. [facility] 23:23 22:58 [facility] [place]
--- NOTE | 2021-11-08 22:58 | ER ---
Nurse's Notes [facility] Name: Leydi Cleaning Age: 36 yrs Sex: Female : 1985 Arrival Date: 11/08/2021 Time: 20:08 Bed 25 Private MD: Diagnosis: -induced hypertension, Presentation: 11/08 20:13 Chief complaint: Patient states: "I am 2 weeks and I have been monitoring my as6 blood pressure and it was 117/100 at home" during pt was being closely monitored for pre eclampsia but was never diagnosed. pt was prescribed Procardia 30mg once a day. pt took her first dose today at 1900. Coronavirus screen: At this time, the client does not indicate any symptoms associated with coronavirus-19. Ebola Screen: No symptoms or risks identified at this time. Initial Sepsis Screen: Does the patient meet any 2 criteria? No. Patient's initial sepsis screen is negative. Does the patient have a suspected source of infection? No. Patient's initial sepsis screen is negative. Risk Assessment: Do you want to hurt yourself or someone else? Patient reports no desire to harm self or others. Onset of symptoms was November 08, 2021. 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 - Social history:: Smoking status: Patient denies any tobacco usage or history of. Screenin:29 Abuse screen: Denies threats or abuse. Denies injuries from another. Nutritional st1 screening: No deficits noted. Tuberculosis screening: No symptoms or risk factors identified. Fall Risk None identified. Assessment: 20:29 General: Appears in no apparent distress. distressed, Behavior is calm, cooperative, ab2 appropriate for age. Pain: Denies pain. Neuro: Level of Consciousness is awake, alert, obeys commands, Oriented to person, place, time, situation, Appropriate for age [place] are equal bilaterally Moves all extremities. Gait is steady, Speech is normal, Facial symmetry appears normal, Denies dizziness. Cardiovascular: No deficits noted. Denies chest pain, shortness of breath, Heart tones S1 S2 present Patient's skin is warm and dry. Chest pain is denied. Cardiovascular: Reports high blood pressure. Respiratory: No deficits noted. Airway is patent Breath sounds are clear bilaterally. GI: No deficits noted. : No deficits noted. No signs and/or symptoms were reported regarding the genitourinary system. EENT: No deficits noted. No signs and/or symptoms were reported regarding the EENT system. Derm: No deficits noted. No signs and/or symptoms reported regarding the dermatologic system. Vital Signs: 20:13 BP 186 / 104; Pulse 92; Resp 18 S; Temp 99.3(O); Pulse Ox 100% on R/A; Weight 65.77 kg as6 (R); Height 5 ft. 3 in. (160.02 cm) (R); Pain 4/10; 20:30 BP 165 / 100; Pulse 89; Resp 14; Pulse Ox 100% on R/A; Pain 0/10; st1 21:09 BP 152 / 100; Pulse 72; Resp 16; Pulse Ox 100% on 1 lpm NC; Pain 0/10; st1 22:05 BP 171 / 103; Pulse 75; Resp 18; Pulse Ox 99% ; st1 22:47 BP 178 / 113; Pulse 91; Resp 14; Pulse Ox 100% on R/A; st1 23:49 BP 145 / 95; Pulse 75; Resp 16; Pulse Ox 100% on R/A; st1 20:13 Body Mass Index 25.69 (65.77 kg, 160.02 cm) as6 Vitals: 20:30 Cardiac Rhythm Assessment Regular Sinus rhythm. st1 [place] Coma Score: 20:30 Eye Response: spontaneous(4). Verbal Response: oriented(5). Motor Response: obeys st1 commands(6). Total: 15. ED Course: 20:08 Patient arrived in ED. wm 20:18 Triage completed. as6 20:21 Arm band placed on. as6 20:27 Martín Nino MD is Attending Physician. mh7 20:29 Tingle, Riana, RN is Primary Nurse. st1 20:29 Placed in gown. Bed in low position. Call light in reach. Side rails up X 1. Cardiac st1 monitor on. Pulse ox on. NIBP on. Verbal reassurance given. 20:51 Basic Metabolic Panel Sent. ab2 20:51 CBC with Diff Sent. ab2 20:51 LFT's Sent. ab2 20:51 Magnesium Sent. ab2 20:51 NT PRO-BNP Sent. ab2 20:51 PT-INR Sent. ab2 20:51 Troponin HS Sent. ab2 20:51 Inserted saline lock: 18 gauge in left antecubital area, using aseptic technique. Blood ab2 collected. 21:34 Urine Culture Sent. st1 21:34 Urine Culture Sent. st1 21:34 XRAY Chest (1 view) Sent. st1 21:35 XRAY Chest (1 view) In Process Unspecified. EDMS 22:55 COVID-19 SARS RT PCR (Document "Date of Onset" if Symptomatic) Sent. st1 22:57 Raoul Zhao MD is Hospitalizing Provider. [facility] 11/09 00:04 the patient refused the order for magnesium sulfate and the enrique catheter. she states st1 she will allow the nurses upstairs to insert a enrique but she wants the admitting doctor to come speak to her at her bedside to explain his rationale on the enrique and the magnesium sulfate. she also asked to go home and then come back when she was finished taking care of things at home and for us to hold her bed upstairs. I did explain to her if she leaves the ED she will be leaving [place]. She agreed to stay and go upstairs. 00:26 No provider procedures requiring assistance completed. st1 00:27 Patient admitted, IV remains in place. st1 Administered Medications: 11/08 22:09 Drug: KeFLEX (cephalexin) 500 mg Route: PO; st1 22:47 Drug: hydrALAZINE 5 mg Route: IVP; Site: right antecubital; st1 23:56 Not Given (Patient Refused): Magnesium Sulfate 4 grams IVPB once over 2 hrs st1 Outcome: 22:58 Decision to Hospitalize by Provider. [facility] 11/09 00:26 Admitted to st1 00:27 Condition: stable st1 00:28 Patient left the ED. st1 Signatures: Dispatcher [employer] Martín Lewis MD MD mh7 Ilene Correa Ashby, RN RN as6 Peter Sharma Shellie, RN RN st1 Corrections: (The following items were deleted from the chart) 11/08 23:56 23:52 Magnesium Sulfate 4 grams IVPB in left antecubital over 2 hrs st1 st1 23:56 23:56 the patient refused to take the magnesium sulfate. st1 st1
[2021-11-08] MEDS ORDERED: ONDANSETRON 4 MG/2 ML VIAL IV PRN (23:01)
[2021-11-08] MEDS ORDERED: ACETAMINOPHEN 325 MG TABLET PO PRN (23:01)
[2021-11-08] MEDS ORDERED: Magnesium Sulfate 2gm IVPB 2 G/50 ML BAG IV ONE (23:11)
[2021-11-09] MEDS ORDERED: MAGNESIUM SULF/STERILE WATER 1,000 ML IV SCH (01:00)
[2021-11-09 01:04] VITALS: BMI 25.7
[2021-11-09] MEDS ORDERED: Ringers Lactate 1,000 ML IV ONE (01:10)
[2021-11-09 01:52] VITALS: O2SAT 100
[2021-11-09] MEDS ORDERED: Ringers Lactate 1,000 ML IV SCH (02:00)
[2021-11-09] MEDS: LABETALOL 20 MG/4ML SYRINGE IV PRN ×2 (06:47→07:40)
[2021-11-09] MEDS ORDERED: INFLUENZA VACCINE (for 6+ mo) 0.5 ML DOSE IMVAC ONE (08:00)
--- NOTE | 2021-11-09 09:12 | PREOPHP ---
Date of Admission: 11/08/2021 History Of Present Illness: 36-year-old primigravida, delivered in [facility] 9 days ago now. S he has had during the latter part of her around 32 weeks, she started developing blood pres sures. Issues with her blood pressure being in the 150 range systolic. Apparently, she was worked up for preeclampsia and was negative. Her labor went uneventfully. She was not given magnesium sulfat e and was not diagnosed with preeclampsia at that point. She was dismissed but noticed in the last 2 to 3 days, her blood pressure was starting to elevate again, at one point being 170 systolic. She ca lled her doctor and was put on Procardia, which she took 1 pill, but then her blood pressure went up even higher. 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 She has not had any type of edema. Her reflexes are normal. When she came to the emergency room, negative protein in the urine. Contact was made with her physicians in [place]. They insisted that she be admitte d here because they did not have room and insisted that she be started on magnesium sulfate, even tho ugh by definition, she does not meet her criteria of preeclampsia. She was started on magnesium sulf ate 4 g loading dose and 2 g an hour maintenance dose. She was also given Apresoline 1 dose and labe talol 1 dose of 20 mg. Blood pressures came down to the 150 systolic range. During my conversation with the patient today, her blood pressures has gone up to 163/104. We will give her another dose of labetalol. 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 Reflexes are normal. The patient has expres sed a desire to go home. We will stop the magnesium sulfate, give her breakfast, let her ambulate. She is in no pain. We will begin her Procardia again. She has also been diagnosed with the UTI acco rding to the emergency room people and she has been given a prescription for Keflex, which she will t paul. I have also instructed her that she needs to get in touch with her doctor who delivered her or at least their surrogate for further instructions. She says that is the way she wishes to go. At th is point, we will get the blood pressures down into the 140 to 150 range again and then we will turn her care back over to her delivering physician. Family History: Not contributory to current situation. Allergies: SHE IS ALLERGIC TO NOTHING FAR WE KNOW. Past Surgical History: She has had no previous surgeries. Physical Examination: Through the emergency room is clear. HEENT: Clear. Pupils equal, round, reactive to light and accommodation. Conjunctivae well perfused. No oral, lingual, or buccal lesions. Chest: Lungs clear. Heart: Without murmurs. Breasts: Not examined. Abdomen: Not noted to have any tenderness. Extremities: Completely clear with no edema and normal reflexes. Assessment And Plan: At this point, it looks like we are probably dealing with chronic hypertension. She says this does run in her family and she needs follow up with her physician in [place] with an Internal Medicine physician for treatment of her hypertension onset of approximately 30 to 32 weeks . MARY/MARGY Voice ID: [id number]
[2021-11-09 11:50] VITALS: TEMP 98.4
[2021-11-09] MEDS ORDERED: HYDRALAZINE HCL 10 MG TABLET PO ONE ×2 (12:34→14:15)
[2021-11-09] MEDS ORDERED: LABETALOL HCL 100 MG TAB PO ONE (17:10)
[2021-11-09 17:28] VITALS: BP 155/93
--- NOTE | 2021-11-09 18:06 | CON ---
Date of Consultation: 11/09/2021 Reason For Consultation: Hypertension. History Of Present Illness: This is a 36-year-old very pleasant female patient who came into emergen cy room last night with high blood pressure and was admitted to Labor and Delivery section under care of Dr. Zhoa and I was contacted today requesting consultation for management of hypertension. The patient delivered a full-term healthy baby on October 31, 2021 and this was a normal delivery. She d id require an episiotomy and had second-degree tear as she describes. The patient did not have any p reeclampsia or eclampsia during this and her was not complicated as she describes . The patient says that 2 different times during third trimester when she went to her straight tooth gear generator operator's office, her blood pressure was around 140/80-90 and she was sent to Labor and Delivery where she was monitored for few hours and blood work was done and each time while she was in Labor and Delivery, h er blood pressure was normal around 110 to 120/70 range and blood work was normal, so she was release d to go home and never required any antihypertensive medication during her . She did monito r her blood pressure from time to time at home and that was normal as she reports in the 110 to 120 s ystolic blood pressure range with diastolic around 70 to 80 range. When she was discharged to [facility] after delivering baby, she was sent home with stool softener to be taken daily as well as ibuprofen 800 mg 4 times a day for pain, which she has been taking it. Yesterday, she checked her blood press ure at home, and it was around 160/95 range, and she contacted her straight tooth gear generator operator who prescribed her Pr ocardia XL 30 mg daily and she took first dose around 7 p.m. yesterday and blood pressure was not com ing down and she came into the emergency room. After that, she was admitted to our hospital. She is breast-feeding her baby, and because she has received IV magnesium, straight tooth gear generator operator has advised her not to breastfeed for 3 hours after the dose of magnesium and that is why she is getting her breast milk pumped out, and she will discard that breast milk, but after appropriate time of waiting, she is goi ng to restart as per straight tooth gear generator operator. She has received 2 doses of labetalol IV and 1 dose of hydralazine IV for control of blood pressure since her presentation to the hospital. She denies any headache, nausea, vomiting. No chest pain. No shortness of breath. Allergies: NO KNOWN ALLERGIES. Medications: Ibuprofen and stool softener as mentioned above at home. Review of Systems: Cardiovascular: As mentioned above. All other systems reviewed and negative. Past Medical History: The patient has a history of white coat hypertension and thalassemia minor. Past Surgical History: Negative. Family History: Father with diabetes and hypertension. Mother with hypertension. Social History: Negative for smoking. Use of alcohol rarely, glass of wine. Physical Examination: Vital Signs: Last temperature 98.4, pulse 83, respiratory rate 18, blood pressure 157/97, oxygen sat uration 98%, height 5 feet 3 inches, weight 145 pounds. General: Awake, alert, oriented, not in distress. HEENT: Head atraumatic, normocephalic. Conjunctivae nonerythematous. Sclerae white. Mouth, no thr ush or edema noted. Ears/Nose, no mass, lesion, discharge noted. Neck: Supple. No JVD, lymph nodes, bruit, thyromegaly noted. Lungs: Bilateral good equal air entry. Clear to auscultation. No rhonchi. No rales. Heart: Normal heart sounds, no murmur or gallop. Abdomen: Soft, bowel sounds normal. No guarding, rigidity, tenderness, mass, hepatosplenomegaly, dis tention, or bruit noted. Extremities: No leg edema. No calf tenderness. Skin: No rash, ulcer, cellulitis. Lymphatics: No lymph node enlargement in neck, supraclavicular, infraclavicular region. Neuro: No focal neurological deficit. Chest: Unremarkable. External Genitalia: Deferred. Rectal: Deferred. Laboratory Data: White count 11.2, hemoglobin 10.8, platelets 418. Sodium 140, potassium 3.6, chlor arthur 107, bicarb 27, BUN 10, creatinine 0.55, glucose 106. Liver function test unremarkable. Chest x -ray, no acute cardiopulmonary changes. Impression: 1.Hypertension. 2.Thalassemia minor. Plan: After I evaluated her, 1 dose of hydralazine 10 mg p.o. was ordered and we will monitor her bl ood pressure, and once her blood pressure comes down, then we should be able to discharge her to [facility] with outpatient management. The patient reports that her straight tooth gear generator operator has asked her to increase Procardia XL 30 mg dose to take 1 tablet 2 times a day instead of once a day, and she has taken her d ose for this morning. I have informed her of possible side effect due to Procardia, which is leg swe lling, and she will monitor that. I have instructed her that upon discharge from the hospital, she s hould monitor her blood pressure 3 times a day and take blood pressure is higher than 140, and I will send that prescription to the pharmacy for hydralazine. She already has Procardia prescr iption as prescribed by her straight tooth gear generator operator. I have also advised her to follow up with her straight tooth gear generator operator and also to come see me at my office this coming week on Friday, which is November 12, 2021 around 9 o'clock in the morning time, and she was advised to bring her home blood pressure readings as well a s home blood pressure machine with her. The patient will continue to take her Procardia 30 mg 2 time s a day and use hydralazine 10 mg 3 times a day only if systolic blood pressure is more than 140, and I had given all these instructions to her and she verbalized understanding. Thank you were much for allowing me to participate in her care. BARNEY/MODL Voice ID: [id number] Report ID: [id number]
--- NOTE | 2021-11-10 15:17 | EKG ---
Test Date: 2021-11-08 Test Time: 20:58:33 Key Person: KHALIDA MEASUREMENT RESULTS: Intervals: Rate: 69 MA: 148 QRSD: 82 QT: 392 QTc: 420 [place]: P: 45 MA: 148 QRS: 102 T: 54 INTERPRETIVE STATEMENTS: Normal sinus rhythm Rightward axis Borderline ECG No previous ECG available for comparison Electronically Signed On 11-10-21 15:14:50 CAMPAIGN DIRECTOR by Anatoliy Roper
== END 2021-11-09 18:19 | disposition home or self-care (01) ==
LOC: ER 20:04 → ERHOLD 23:00 → INTOOBSV 23:00 → 2ND-WC 11-09 00:24
PROVIDERS: ADMIT Specialist; ATTEND Specialist
DX: O16.5 Unspecified maternal hypertension, complicating the puerperium (principal); D56.3 Thalassemia minor; N39.0 Urinary tract infection, site not specified; O86.20 Urinary tract infection following delivery, unspecified; Z20.822 Contact with and (suspected) exposure to COVID-19; Z82.49 Family history of ischemic heart disease and other diseases of the circulatory system; Z83.3 Family history of diabetes mellitus
CPT/HCPCS: 93005; 87088; 85025; 87086; 80048; 36415; 83735 ×2; 85610; 80076; 81003; 84484; 83880; 71045; 96374; 99285; U0003; J0360; J3475 ×2; J7120; G0378 ×2